=== PATIENT | female | born 1970 | race African-American/Black ===

== ENCOUNTER 2017-05-27 20:04 | Emergency (ER) | payer OTHER ==
[2017-05-27] MEDS ORDERED: IBUPROFEN 800 MG TABLET PO ONE (20:54)
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
[2017-05-27 21:12] VITALS: BP 146/80
== END 2017-05-27 21:13 | disposition home or self-care (01) ==
LOC: ER 20:04
DX: S16.1XXA Strain of muscle, fascia and tendon at neck level, initial encounter (principal); M54.89 Other dorsalgia; M54.5 Low back pain; M54.2 Cervicalgia; V49.40XA Driver injured in collision with unspecified motor vehicles in traffic accident, initial encounter
CPT/HCPCS: 99283

== ENCOUNTER 2017-07-09 10:43 | Emergency (ER) | payer OTHER ==
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
[2017-07-09 12:06] LABS: ABSOLUTE EOSINOPHILS # (AUTO) 0.4 10^3/uL (0.0-0.6); ABSOLUTE LYMPHOCYTES (AUTO) 2.2 10^3/uL (0.5-4.7); ABSOLUTE MONOCYTES (AUTO) 0.5 10^3/uL (0.1-1.4); ABSOLUTE NEUT (AUTO) 3.3 10^3/uL (1.7-8.2); BASOPHILS % (AUTO) 0.7 % (0-2); EOSINOPHILS % (AUTO) 5.9 % (0-6); HEMOGLOBIN 14.3 g/dL (12.0-15.5); LYMPHOCYTES % (AUTO) 34.4 % (13-45); MEAN CORPUSCULAR HEMOGLOBIN 28.8 pg (27.0-33.4); MEAN CORPUSCULAR HGB CONC 33.3 g/dL (32.0-36.0); MEAN CORPUSCULAR VOLUME 87 fl (80-97); MONOCYTES % (AUTO) 7.3 % (3-13); PLATELET COUNT 488 10^3/uL (150-450); RED BLOOD COUNT 4.97 10^6/uL (3.72-5.28); RED CELL DISTRIBUTION WIDTH 14.1 % (11.5-14.0); SEGMENTED NEUTROPHILS % (AUTO) 51.7 % (42-78); TOTAL CELLS COUNTED % (AUTO) 100 %; WHITE BLOOD COUNT 6.3 10^3/uL (4.0-10.5)
[2017-07-09 12:15] LABS: APPEARANCE,URINE SLIGHTLY-CLOUDY; BILIRUBIN,URINE NEGATIVE (NEGATIVE); COLOR,URINE YELLOW; GLUCOSE, URINE NEGATIVE (NEGATIVE); KETONES,URINE NEGATIVE (NEGATIVE); LEUKOCYTE ESTERASE,URINE NEGATIVE (NEGATIVE); NITRITE,URINE NEGATIVE (NEGATIVE); PROTEIN,URINE NEGATIVE (NEGATIVE); URINE SPECIFIC GRAVITY 1.016; UROBILINOGEN,URINE NEGATIVE mg/dL (<2.0)
[2017-07-09 12:22] LABS: ALANINE AMINOTRANSFERASE 21 U/L (9-52); ALBUMIN 4.4 g/dL (3.5-5.0); ALKALINE PHOSPHATASE 106 U/L (38-126); ANION GAP 10 (5-19); ASPARTATE AMINO TRANSFERASE 22 U/L (14-36); BILIRUBIN,DIRECT 0.2 mg/dL (0.0-0.4); BILIRUBIN,TOTAL 0.3 mg/dL (0.2-1.3); BLOOD UREA NITROGEN 12 mg/dL (7-20); CALCIUM 10.5 mg/dL (8.4-10.2); CARBON DIOXIDE 34 mmol/L (22-30); CHLORIDE 102 mmol/L (98-107); GLUCOSE 88 mg/dL (75-110); SODIUM 145.6 mmol/L (137-145); TOTAL PROTEIN 8.1 g/dL (6.3-8.2)
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
--- NOTE | 2017-07-09 13:18 | RADIOLOGY REPORT (SQ) ---
EXAM DESCRIPTION: L SPINE WHOLE COMPLETED DATE/TIME: 07/09/2017 12:59 pm REASON FOR STUDY: Lumbar midline back pain COMPARISON: None. NUMBER OF VIEWS: Five views including obliques. TECHNIQUE: AP, lateral, oblique, and sacral radiographic images acquired of the lumbar spine. LIMITATIONS: None. FINDINGS: MINERALIZATION: Normal. SEGMENTATION: Normal. No transitional anatomy. ALIGNMENT: Normal. VERTEBRAE: Maintained height. No fracture or worrisome bone lesion. DISCS: Mild multilevel degenerative disc disease. POSTERIOR ELEMENTS: Pedicles and facets are intact. No pars defect or posterior arch defects. HARDWARE: None in the spine. PARASPINAL SOFT TISSUES: Normal. PELVIS: Intact as visualized. No fractures or worrisome bone lesions. SI joints intact. OTHER: Calcified uterine fibroid. IMPRESSION: MILD MULTILEVEL DEGENERATIVE DISC DISEASE WITHOUT ACUTE OSSEOUS ABNORMALITY. INCIDENTAL CALCIFIED UTERINE FIBROID. TECHNICAL DOCUMENTATION: JOB ID: [id number] [employer]- All Rights Reserved Reading location - IP/workstation name: [email or web address]
[2017-07-09 13:46] VITALS: BP 144/83
== END 2017-07-09 13:52 | disposition home or self-care (01) ==
LOC: ER 10:43
DX: M54.5 Low back pain (principal); I10 Essential (primary) hypertension
CPT/HCPCS: 36415; 72110; 80053; 81001; 83690; 85025; 99284

== ENCOUNTER 2018-03-04 13:07 | Emergency (ER) | payer BC, OTHER ==
[2018-03-04 13:15] VITALS: BP 131/68
[2018-03-04] MEDS ORDERED: DEXAMETHASONE SOD PHOS INJ 10 MG/1 ML VIAL IM ONE (13:36)
--- NOTE | 2018-03-04 13:42 | ER Document Report ---
ED Extremity Problem, Lower - General Chief Complaint: Knee Pain Stated Complaint: RIGHT KNEE PAIN, SWELLING Time Seen by Provider: 03/04/18 13:26 Notes: 47-year-old female presents to the ER complaining of right knee pain. About 2 weeks ago she was working when she felt a twinge in her knee as she was lifting. She is been doing well but on and off since then her knee has caused her pain her knee will swell up after work but then as she rested it the swelling will go down. She complains of pain around her kneecap on the inside of her knee. She denies any numbness or tingling. Denies any redness heat or fevers. Denies any falls or specific trauma she stated she was just lifting at work and turned the wrong way. Rates the pain is moderate. It is worse with movement. TRAVEL OUTSIDE OF THE [place] IN LAST 30 DAYS: No - Related Data Allergies/Adverse Reactions: No Known Drug Allergies Allergy (Verified 03/04/18 13:07) Penicillins Allergy (Verified 03/04/18 13:07) Past Medical History - Social History Smoking Status: Never Smoker Family History: Reviewed & Not Pertinent Patient has suicidal ideation: No Patient has homicidal ideation: No - Past Medical History Cardiac Medical History: Reports: Hx Hypertension Renal/ Medical History: Denies: Hx Peritoneal Dialysis Past Surgical History: Reports: Hx Abdominal Surgery - Laparoscopy for abdominal pain where they found the uterine fibroids - Immunizations Immunizations up to date: Yes Review of Systems - Review of Systems Genitourinary: No symptoms reported Musculoskeletal: Joint pain, Joint swelling Skin: No symptoms reported Neurological/Psychological: No symptoms reported -: Yes All other systems reviewed and negative Physical Exam - Vital signs Vitals: Temp Pulse Resp BP Pulse Ox 98.4 F 75 18 131/68 H 98 03/04/18 13:13 03/04/18 13:13 03/04/18 13:13 03/04/18 13:13 03/04/18 13:13 - Notes Notes: GENERAL_APPEARANCE: well_nourished, alert, cooperative, no_acute_distress, no_obvious_discomfort. VITALS: reviewed, see vital signs table. HEAD: no_swelling\tenderness on the head. EYES: conjunctiva_clear. NOSE: no_nasal_discharge. MOUTH: (-)decreased moisture. NECK: supple, no_neck_tenderness, (-)thyromegaly. BACK: no_back_tenderness. EXTREMITIES: Right knee is slightly swollen. There is a positive patellar grind and very specific point tenderness in the medial joint space. Drawer signs of the knee are negative. There is no calf pain or swelling or strong dorsalis pedis pulses distal. Drawer signs of the knee are negative. There is a positive Jamal's test. SKIN: warm, dry, good_color, no_rash. MENTAL_STATUS: speech_clear, oriented_X_3, normal_affect, responds_appropriately to questions. Course - Re-evaluation Re-evalutation: 03/04/18 13:39 47-year-old female who presents with knee pain. Patient may have a meniscal injury. I spoke with her at length I offered her crutches and a brace but she declined she stated she cannot get around with those. I will give her a shot of steroids here she is been using IV Profen. We will place her on a steroid taper we will give her orthopedic referral. - Vital Signs Vital signs: Temp Pulse Resp BP Pulse Ox 98.4 F 75 18 131/68 H 98 03/04/18 13:13 03/04/18 13:13 03/04/18 13:13 03/04/18 13:13 03/04/18 13:13 Discharge - Discharge Clinical Impression: Internal derangement of right knee involving anterior horn of medial meniscus Condition: Good Disposition: HOME, SELF-CARE Instructions: Suspected Internal Knee Injury ([facility]), Ice & Elevation ([facility]) Additional Instructions: Please follow-up with Dr. Lehman orthopedics for possible internal derangement of your knee or injured meniscus of your knee. Prescriptions: Tramadol HCl [Ultram 50 mg Tablet] 50 mg PO Q6HP PRN #40 tablet PRN Reason: Methylprednisolone [Medrol Dosepack (4 mg/Tab) 21 Tab/Dosepak] 4 mg PO ASDIR PRN #21 tab.ds.pk PRN Reason: Referrals: MALISSA CAIN MD [ACTIVE STAFF] - Follow up as needed
== END 2018-03-04 14:02 | disposition home or self-care (01) ==
LOC: ER 13:07
DX: M23.311 Other meniscus derangements, anterior horn of medial meniscus, right knee (principal); M25.561 Pain in right knee; I10 Essential (primary) hypertension; Z88.0 Allergy status to penicillin
CPT/HCPCS: 99283; 96372; J1100

== ENCOUNTER 2018-05-24 10:16 | Emergency (ER) | payer BC ==
[2018-05-24] MEDS ORDERED: ONDANSETRON HCL INJ/PF 4 MG/2 ML SDV IV ONE (11:23)
[2018-05-24] MEDS ORDERED: NORMAL SALINE 1000 ML 1,000 ML IV ONE (11:24)
--- NOTE | 2018-05-24 11:29 | ER Document Report ---
ED Medical Screen (RME) - General Chief Complaint: Abdominal Pain Stated Complaint: FEVER Time Seen by Provider: 05/24/18 11:10 Mode of Arrival: Ambulatory Information source: Patient TRAVEL OUTSIDE OF THE [place] IN LAST 30 DAYS: No - HPI Notes: 05/24/18 11:24 Note that this is a rapid triage assessment. 48-year-old female comes in with 4 episodes of diarrhea since last evening with abdominal pain worse in the right upper quadrant and nausea. The patient also has a fever of 100.3 on arrival. She describes mild back pain and generalized malaise. She states she may have a slight runny nose, and questions flu exposure at work. 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 She does describe a history of hypertension and a history of previous abdominal pains where she had an exploratory laparotomy which did not show anything by her report. No chest pain or significant cough. On exam oropharynx is clear neck clear cardiovascular regular rate and rhythm no appreciable murmur gallop or rub lungs clear to auscultation abdomen is tender through the upper abdominal region right greater than left with a positive Chase's. Extremities no edema Fever and abdominal pain and diarrhea. No recent antibiotics to suggest C. difficile. Given that she works in of chicken processing plant, will attempt a stool culture. Also get a right upper quadrant ultrasound with lab work and IV fluids and will obtain a flu test given the fever and exposure. Please see partner's note for further evaluation and care. 05/24/18 11:28 - Related Data Allergies/Adverse Reactions: Penicillins Allergy (Verified 05/24/18 10:57) Past Medical History - Social History Chew tobacco use (# tins/day): No Frequency of alcohol use: Social Drug Abuse: None - Past Medical History Cardiac Medical History: Reports: Hx Hypertension Renal/ Medical History: Denies: Hx Peritoneal Dialysis Past Surgical History: Reports: Hx Abdominal Surgery - Laparoscopy for abdominal pain where they found the uterine fibroids, Hx Gynecologic Surgery - Immunizations Immunizations up to date: Yes Physical Exam - Vital signs Vitals: Temp Pulse Resp BP Pulse Ox 100.3 F 97 20 129/69 H 98 05/24/18 10:38 05/24/18 10:38 05/24/18 10:38 05/24/18 10:38 05/24/18 10:38 Course - Vital Signs Vital signs: Temp Pulse Resp BP Pulse Ox 100.3 F 97 20 129/69 H 98 05/24/18 10:38 05/24/18 10:38 05/24/18 10:38 05/24/18 10:38 05/24/18 10:38
[2018-05-24] MEDS: ACETAMINOPHEN SUSP 160 MG/5 ML ORAL SYRING PO ONE ×2 (11:40→11:44)
[2018-05-24 12:06] LABS: ABSOLUTE LYMPHOCYTES (AUTO) 1.3 10^3/uL (0.5-4.7); ABSOLUTE MONOCYTES (AUTO) 0.8 10^3/uL (0.1-1.4); ABSOLUTE NEUT (AUTO) 9.7 10^3/uL (1.7-8.2); BASOPHILS % (AUTO) 0.3 % (0-2); EOSINOPHILS % (AUTO) 0.2 % (0-6); HEMATOCRIT 42.7 % (36.0-47.0); HEMOGLOBIN 14.3 g/dL (12.0-15.5); MEAN CORPUSCULAR HEMOGLOBIN 28.6 pg (27.0-33.4); MEAN CORPUSCULAR HGB CONC 33.5 g/dL (32.0-36.0); MEAN CORPUSCULAR VOLUME 86 fl (80-97); MONOCYTES % (AUTO) 6.5 % (3-13); PLATELET COUNT 512 10^3/uL (150-450); RED BLOOD COUNT 4.99 10^6/uL (3.72-5.28); RED CELL DISTRIBUTION WIDTH 14.6 % (11.5-14.0); TOTAL CELLS COUNTED % (AUTO) 100 %; WHITE BLOOD COUNT 11.8 10^3/uL (4.0-10.5)
[2018-05-24] MEDS ORDERED: KETOROLAC TROMETHAMINE INJ/PF 30 MG/1 ML SDV IV ONE (12:15)
[2018-05-24 12:25] LABS: A TYPE INFLUENZA AG NEGATIVE (NEGATIVE); APPEARANCE,URINE SLIGHTLY-CLOUDY; B INFLUENZA AG NEGATIVE (NEGATIVE); BILIRUBIN,URINE NEGATIVE (NEGATIVE); COLOR,URINE YELLOW; GLUCOSE, URINE NEGATIVE (NEGATIVE); KETONES,URINE NEGATIVE (NEGATIVE); LEUKOCYTE ESTERASE,URINE NEGATIVE (NEGATIVE); NITRITE,URINE NEGATIVE (NEGATIVE); PROTEIN,URINE NEGATIVE (NEGATIVE); URINE SPECIFIC GRAVITY 1.021
[2018-05-24 12:28] LABS: ALANINE AMINOTRANSFERASE 25 U/L (9-52); ALBUMIN 4.6 g/dL (3.5-5.0); ALKALINE PHOSPHATASE 133 U/L (38-126); ANION GAP 12 (5-19); ASPARTATE AMINO TRANSFERASE 37 U/L (14-36); BILIRUBIN,DIRECT 0.3 mg/dL (0.0-0.4); BILIRUBIN,TOTAL 0.6 mg/dL (0.2-1.3); BLOOD UREA NITROGEN 13 mg/dL (7-20); CALCIUM 10.1 mg/dL (8.4-10.2); CARBON DIOXIDE 29 mmol/L (22-30); CHLORIDE 98 mmol/L (98-107); GLUCOSE 99 mg/dL (75-110); POTASSIUM 3.8 mmol/L (3.6-5.0); SODIUM 139.3 mmol/L (137-145); TOTAL PROTEIN 8.9 g/dL (6.3-8.2)
--- NOTE | 2018-05-24 13:19 | RADIOLOGY REPORT (SQ) ---
EXAM DESCRIPTION: U/S ABDOMEN LIMITED W/O DOP COMPLETED DATE/TIME: 05/24/2018 1:07 pm REASON FOR STUDY: RUQ pain, fever COMPARISON: None. TECHNIQUE: Dynamic and static grayscale images acquired of the abdomen and recorded on PACS. Joseo luan selected color Doppler and spectral images recorded. LIMITATIONS: None. FINDINGS: PANCREAS: No mass in the head or body of the pancreas. The tail was poorly seen. LIVER: No masses. Echotexture normal. LIVER VASCULATURE: Normal directional flow of the main portal vein and hepatic veins. GALLBLADDER: No stones. Normal wall thickness. No pericholecystic fluid. ULTRASOUND-DETECTED RODRIGUEZ'S SIGN: Negative. INTRAHEPATIC DUCTS AND COMMON DUCT: CBD and intrahepatic ducts normal caliber. No filling defects. INFERIOR VENA CAVA: Not imaged. AORTA: No aneurysm. RIGHT KIDNEY: Normal size, 10.2 cm. Normal echogenicity. No solid or suspicious masses. No hydroneph rosis. No calcifications. PERITONEAL AND RIGHT PLEURAL SPACE: No ascites or effusions. OTHER: No other significant findings. IMPRESSION: NORMAL RIGHT UPPER QUADRANT ULTRASOUND. TECHNICAL DOCUMENTATION: JOB ID: [id number] [employer]- All Rights Reserved Reading location - IP/workstation name: [email or web address]
--- NOTE | 2018-05-24 15:37 | RADIOLOGY REPORT (SQ) ---
EXAM DESCRIPTION: CT ABD/PELVIS WITH IV ONLY COMPLETED DATE/TIME: 05/24/2018 3:28 pm REASON FOR STUDY: RLQ abd pain COMPARISON: None. TECHNIQUE: CT scan of the abdomen and pelvis performed using helical scanning technique with dynamic intravenous contrast injection. No oral contrast. Images reviewed with lung, soft tissue, and bone windows. Reconstructed coronal and sagittal MPR images reviewed. Delayed images for evaluation of the urinary system also acquired. All images stored on PACS. All CT scanners at this facility use dose modulation, iterative reconstruction, and/or weight based d osing when appropriate to reduce radiation dose to as low as reasonably achievable (ALARA). [facility]: Dose Right [facility]: CareDose [facility]: Dose Right [facility]: Teradose 4D [facility]: [email or web address] CONTRAST TYPE AND DOSE: contrast/concentration: Isovue 350.00 mg/ml; Total Contrast Delivered: 100.0 ml; Total Saline Delivered: 72.0 ml RENAL FUNCTION: None required. The patient is less than 50 years old. RADIATION DOSE: CT Rad equipment meets quality standard of care and radiation dose reduction techniq ues were employed. CTDIvol: 11.9 - 15.9 mGy. DLP: 2272 mGy-cm.. LIMITATIONS: None. FINDINGS: LOWER CHEST: No significant findings. No nodules or infiltrates. LIVER: Normal size. No masses. No dilated ducts. SPLEEN: Normal size. No focal lesions. PANCREAS: No masses. No significant calcifications. No adjacent inflammation or peripancreatic fluid collections. Pancreatic duct not dilated. GALLBLADDER: No identified stones by CT criteria. No inflammatory changes to suggest cholecystitis. ADRENAL GLANDS: No significant masses or asymmetry. RIGHT KIDNEY AND URETER: No solid masses. No significant calcifications. No hydronephrosis or hyd roureter. LEFT KIDNEY AND URETER: No solid masses. No significant calcifications. No hydronephrosis or hydr oureter. AORTA AND VESSELS: No aneurysm. No dissection. Renal arteries, SMA, celiac without stenosis. RETROPERITONEUM: No retroperitoneal adenopathy, hemorrhage or masses. BOWEL AND PERITONEAL CAVITY: No masses or inflammatory changes. No free fluid or peritoneal masses. APPENDIX: Not clearly visualized. PELVIS: Bulky fibroid uterus. No free fluid. Normal bladder. ABDOMINAL WALL: No masses. No hernias. BONES: No significant or acute findings. OTHER: No other significant finding. IMPRESSION: 1. No acute CT findings to explain right lower quadrant abdominal pain. The appendix i s not clearly visualized, however there are no secondary findings of inflammation in the right lower quadrant. 2. Bulky fibroid uterus. TECHNICAL DOCUMENTATION: JOB ID: [id number] Quality ID # [id number]: Final reports with documentation of one or more dose reduction techniques (e.g., Au tomated exposure control, adjustment of the mA and/or kV according to patient size, use of iterative reconstruction technique) 2010 [employer]- All Rights Reserved Reading location - IP/workstation name: [email or web address]
[2018-05-24 16:46] VITALS: BP 121/56
--- NOTE | 2018-05-24 18:02 | ER Document Report ---
Entered by DANA ALBERTS SCRIBE 05/24/18 1227 Acting as scribe for:YANIQUE COPE MD ED General - General Mode of Arrival: Ambulatory Information source: Patient TRAVEL OUTSIDE OF THE [place] IN LAST 30 DAYS: No <YANIQUE COPE - Last Filed: 05/24/18 16:23> <OSWALD SNIDER - Last Filed: 05/24/18 16:30> - General Chief Complaint: Abdominal Pain Stated Complaint: FEVER Time Seen by Provider: 05/24/18 11:10 Notes: 47-year-old female who presents to the emergency department today with complaints of chills, headache, diarrhea x4, nasal discharge which is clear in color, and dizziness. Patient states all her symptoms began last night. 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 Patient denies cough or nausea. (DANA ALBERTS) 47-year-old female who presents to the emergency department today with complaints of chills, headache, diarrhea x4, nasal discharge which is clear in color, and dizziness. Patient states all her symptoms began last night. 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 Patient denies cough or nausea. (YANIQUE COPE) - Related Data Allergies/Adverse Reactions: Penicillins Allergy (Verified 05/24/18 10:57) Past Medical History - General Information source: Patient - Social History Smoking Status: Never Smoker Cigarette use (# per day): No Chew tobacco use (# tins/day): No Frequency of alcohol use: Social Drug Abuse: None Lives with: Family Family History: Reviewed & Not Pertinent Patient has suicidal ideation: No Patient has homicidal ideation: No - Past Medical History Cardiac Medical History: Reports: Hx Hypertension Past Surgical History: Reports: Hx Abdominal Surgery - Laparoscopy for abdominal pain where they found the uterine fibroids, Hx Gynecologic Surgery - Immunizations Immunizations up to date: Yes <YANIQUE COPE - Last Filed: 05/24/18 16:23> Review of Systems - Review of Systems Constitutional: See HPI, Chills EENT: See HPI, Other - Clear nasal discharge Cardiovascular: See HPI, Lightheaded Respiratory: denies: Cough Gastrointestinal: See HPI, Diarrhea. denies: Nausea Genitourinary: No symptoms reported Female Genitourinary: No symptoms reported Musculoskeletal: No symptoms reported Skin: No symptoms reported Hematologic/Lymphatic: No symptoms reported Neurological/Psychological: See HPI, Headaches -: Yes All other systems reviewed and negative <YANIQUE COPE - Last Filed: 05/24/18 16:23> Physical Exam <YANIUQE COPE - Last Filed: 05/24/18 16:23> - Vital signs Vitals: Temp Pulse Resp BP Pulse Ox 100.3 F 97 20 129/69 H 98 05/24/18 10:38 05/24/18 10:38 05/24/18 10:38 05/24/18 10:38 05/24/18 10:38 - Notes Notes: Physical Exam: General: Alert, appears well. HEENT: Normocephalic. Atraumatic. PERRL. Extraocular movements intact. Oropharynx clear. TMs are clear bilaterally. No posterior oropharynx erythema or exudate. Neck: Supple. Non-tender. Respiratory: No respiratory distress. Clear and equal breath sounds bilaterally. Cardiovascular: Regular rate and rhythm. Abdominal: Mild right lower quadrant tenderness with palpation over McBurney's point. No distension. Normal Bowel Sounds. Back: Non-tender. No deformity or step off. Extremities: Moves all four extremities. Upper extremities: Normal inspection. Normal ROM. Lower extremities: Normal inspection. No edema. Normal ROM. Neurological: Normal cognition. AAOx4. Normal speech. Psychological: Normal affect. Normal Mood. Skin: Warm. Dry. Normal color. (LEXUS,DANA) Physical Exam: General: Alert, appears well. HEENT: Normocephalic. Atraumatic. PERRL. Extraocular movements intact. Oropharynx clear. TMs are clear bilaterally. No posterior oropharynx erythema or exudate. Neck: Supple. Non-tender. Respiratory: No respiratory distress. Clear and equal breath sounds bilaterally. Cardiovascular: Regular rate and rhythm. Abdominal: Mild right lower quadrant tenderness with palpation over McBurney's point. No distension. Normal Bowel Sounds. Back: Non-tender. No deformity or step off. Extremities: Moves all four extremities. Upper extremities: Normal inspection. Normal ROM. Lower extremities: Normal inspection. No edema. Normal ROM. Neurological: Normal cognition. AAOx4. Normal speech. Psychological: Normal affect. Normal Mood. Skin: Warm. Dry. Normal color. (YANIQUE COPE) Course - Laboratory Result Diagrams: 05/24/18 11:49 05/24/18 11:49 - Diagnostic Test Radiology reviewed: Reports reviewed - Normal right upper quadrant ultrasound IV contrasted CT scan of the abdomen pelvis shows a bulky fibroid uterus with calcified fibroids. The appendix is not seen. There are no inflammatory changes in the right lower quadrant. There is no explanation for the right lower quadrant abdominal pain. <YANIQUE COPE - Last Filed: 05/24/18 16:23> - Laboratory Result Diagrams: 05/24/18 11:49 05/24/18 11:49 <OSWALD SNIDER - Last Filed: 05/24/18 16:30> - Re-evaluation Re-evalutation: 05/24/18 14:31 The patient is feeling much better after the IV Toradol. Reexam shows her abdomen continues to be very tender in the right lower quadrant around McBurney's point region. (DANA ALBERTS) 05/24/18 14:31 The patient is feeling much better after the IV Toradol. Reexam shows her abdomen continues to be very tender in the right lower quadrant around McBurney's point region. (YANIQUE COPE) - Vital Signs Vital signs: Temp Pulse Resp BP Pulse Ox 98.0 F 77 20 118/60 95 05/24/18 15:11 05/24/18 15:11 05/24/18 15:11 05/24/18 15:11 05/24/18 15:11 - Laboratory Laboratory results interpreted by me: 05/24/18 05/24/18 05/24/18 11:49 11:49 11:49 WBC 11.8 H RDW 14.6 H Plt Count 512 H Seg Neutrophils % 82.0 H Lymphocytes % 11.0 L Absolute Neutrophils 9.7 H AST 37 H Alkaline Phosphatase 133 H Total Protein 8.9 H Urine Urobilinogen 2.0 H Discharge <YANIQUE COPE - Last Filed: 05/24/18 16:23> <OSWALD SNIDER - Last Filed: 05/24/18 16:30> - Discharge Clinical Impression: Viral syndrome, Right lower quadrant abdominal pain Fibroid uterus Qualifiers: Uterine leiomyoma location: unspecified location Qualified Code(s): D25.9 - Leiomyoma of uterus, unspecified Condition: Stable Disposition: HOME, SELF-CARE Additional Instructions: Viral Syndrome: The physician has diagnosed a viral infection. Viruses not only cause "colds," but can cause many different symptoms including generalized aching, fever, headache, cough, diarrhea, nausea, vomiting, and fatigue. The treatment, for the most part, is simply relief of symptoms. This means that antibiotics are usually not given. Rest, fluids, pain medications and, occasionally, medication for the specific symptoms that are most bothersome will be prescribed. Use good handwashing to avoid passing the virus to others. Shared toys should be cleaned with disinfectant. Clean the toilets, sinks, and counter surfaces in bathrooms. Launder clothing in hot water. Contact the physician if you develop any new or unusual symptoms such as severe headache, stiff neck, high fever, chest pain, productive cough, or shortness of breath. You should be rechecked if you don't see marked improvement within seven to 10 days. Abdominal Pain: There are many causes of abdominal pain. Pain can mean a serious problem requiring surgery (such as appendicitis). It can also be an innocent problem that goes away on its own (such as a viral infection). Often, time must pass to determine the cause of pain. The physician does not feel that hospitalization is necessary, at present. Things may change within the next 24 hours. Call the doctor or come back for re- examination if any problems occur, such as: (1) Pain that becomes more severe, steady, or becomes concentrated in one specific area. Also, pain that is more severe with movement or coughing. (2) Vomiting that persists or becomes more frequent. (3) Blood in the vomitus, urine, or bowel movements. Blood in the stool may have a tarry or black appearance. (4) Shaking chills or fever greater than 100 degrees F. (5) The abdomen becomes more distended or swollen. (6) Bowel movements cease. (7) Failure to improve as expected. Observation for Appendicitis: At this time, the abdominal pain does not seem to be appendicitis. Our next "test" will be passage of time. If you have early appendicitis, signs will appear to help us make the diagnosis. Most of the time, the pain goes away. In these cases, the pain is usually due to a virus in the lymph glands near the appendix, or due to an ovarian cyst or ovulation. Unless the pain is gone, you should come back for a recheck. This is usually done in 8 to 12 hours. Be sure you understand your follow-up in structions. Come back immediately if: (1) the pain becomes much more severe and sharply increases with movement or coughing, (2) vomiting becomes frequent, (3) there is blood in the vomit, urine, or bowel movements, (4) there are shaking chills or fever, or (5) the abdomen becomes more distended or swollen. Take Tylenol every 4 hours and ibuprofen every 6 hours for pain and fever. Drink plenty of fluids and get plenty of rest. Follow-up with your primary care provider in the next few days if not improving. RETURN TO THE EMERGENCY ROOM IF ANY NEW OR WORSENING SYMPTOMS. Forms: Return to Work I personally performed the services described in the documentation, reviewed and edited the documentation which was dictated to the scribe in my presence, and it accurately records my words and actions.
== END 2018-05-24 16:45 | disposition home or self-care (01) ==
LOC: ER 10:16
DX: B34.9 Viral infection, unspecified (principal); R10.31 Right lower quadrant pain; D25.9 Leiomyoma of uterus, unspecified; R51 Headache; R19.7 Diarrhea, unspecified; R09.89 Other specified symptoms and signs involving the circulatory and respiratory systems; R50.9 Fever, unspecified; R42 Dizziness and giddiness; I10 Essential (primary) hypertension
CPT/HCPCS: 99284; 96361; 96374; 96375; 36415; 83690; 85025; 81025; 80053; 81001; 87804; 76705; 74177; J1885; J2405; J7030